=== PATIENT | female | born 1965 | race Caucasian/White ===

== ENCOUNTER 2017-10-02 15:42 | Outpatient (REF) | payer BC, SELFPAY ==
--- NOTE | 2017-10-02 15:00 | PAPFT_PTH ---
PATIENT: JENNIFER FRIEDMAN I LOC: [facility] U#:[id number] AGE/SX: 52/F ROOM: RE10/02/[address]: JOAQUIN Ornelas : 1965 BED: DIS: 10/02/2017 SPEC #: [id number] RECD: 10/02/17 17:40 STATUS: EDUARDO LEA #: [id number] JESIKA: 10/02/17 15:[address]: Josette Hughes DEPT: [facility] Cytology RECD BY: Anjana Benoit Tissues: 1 - CX/ENDOCX FOR PAP SMEARS Procedures: PAP THIN PREP/UVM Screening HPV DNA PROBE Comments: [id number]
== END 2017-10-02 15:43 ==
LOC: LBN 15:42
PROVIDERS: Visit Provider Nurse Practitioner Family
DX: Z12.4 Encounter for screening for malignant neoplasm of cervix (principal); Z11.51 Encounter for screening for human papillomavirus (HPV)
CPT/HCPCS: 88142; 87624

== ENCOUNTER 2018-02-20 07:52 | Day surgery (SDC) | payer BC, SELFPAY ==
[2018-02-20 08:31] VITALS: BP 122/81; PULSE 82; RESP 16; TEMP 36.9; O2SAT 96
[2018-02-20] MEDS: Povidone-Iodine Soln. 118 ML BTL TP (09:00)
[2018-02-20] MEDS: Lactated Ringers 1,000 ML 80 ML IV (09:05)
[2018-02-20] MEDS: Acetaminophen 325 MG TAB 650 MG PO (09:35)
[2018-02-20] MEDS: Bupivacaine 0.5% Pres-Free 30 ML VIAL (10:26)
[2018-02-20] MEDS: Lidocaine 1% Pres-Free 5 ML VIAL (10:26)
[2018-02-20] MEDS: Dexamethasone 4 MG/ML VIAL (11:06)
--- NOTE | 2018-02-20 11:33 | W.PM.DSUDISC ---
Discharge Plan Disposition Patient Disposition: HOME Condition: Good Discharge Details Reason For Visit: (L) HALLUX RIGIDUS Attending Provider: Zoran Prakash Primary Care Provider: None,None Home Meds and New Rx's Prescriptions: New ibuprofen 600 mg tablet 600 mg PO QID PRN (Reason: pain and inflamation) Qty: 60 RF: 0 hydrocodone-acetaminophen 5-300 mg tablet 1 tab PO Q6H PRN (Reason: pain, moderate) Qty: 7 RF: 0 Continued aspirin 325 MG tablet 325 mg PO PRN RF: 0 acetaminophen 500 MG tablet 500 mg PO PRN Qty: 2 RF: 0 valacyclovir 1,000 MG tablet 1,000 mg PO DAILY Qty: 90 RF: 2 ibuprofen 200 mg Tablet 400 mg PRNRF: 0 Discharge Instructions Activity:: Activity as Tolerated Remove Dressings/Wound Care:: Do Not Remove Shower/Bathe:: Cover Diet:: As Tolerated Discharge Orders Discharge Orders: Discharge Order (Routine); Ordered 02/20/18 Ordered By: Zoran Prakash DS: Diagnosis Discharge Diagnosis (1) Hallux limitus of left foot: Status: Acute
[2018-02-20 11:50] VITALS: BP 128/82; PULSE 72; RESP 16; TEMP 36.3; O2SAT 100
--- NOTE | 2018-02-20 12:51 | ROE_ITS ---
DATE OF PROCEDURE: February 20, 2018 PREOPERATIVE DIAGNOSIS: Hallux limitus deformity left foot with periarticular exostoses and advanced degenerative arthrosis. POSTOPERATIVE DIAGNOSIS: Same. PROCEDURE: Cheilectomy first MPJ left foot. SURGEON: Zoran Prakash D.P.M. ANESTHESIA: Monitored Anesthesia Care administered by Sony Penny CRNA; local blockade of the fi rst ray with 10 cc's 50/50 mixture 1% lidocaine plain, 0.5% Marcaine plain. OPERATIVE INDICATIONS: 52-year-old female with increasing pain in her left great toe joint secondary to advancing degenerative arthritis interfering with daily activities, shoe gear, work activities. Non-surgical treatments have failed to provide significant relief of symptoms. She understands risks and complications of surgery pertaining to pain, scarring, infection, stiffness of the joint. She u nderstands that over time progressive deterioration of the joint will likely occur, requiring revisio nal procedures. All questions have been answered. Informed consent has been obtained. No promises made to final outcome of surgery. REPORT OF OPERATION: The patient was brought to the operative suite, placed in the supine position, left foot prepped and draped in the usual sterile podiatric fashion. Anesthesia being achieved, the left foot was exsanguinated; a well-padded ankle tourniquet inflated 250 mmHg. Attention was directed to the left foot where a 5 cm dorsal medial incision was made parallel to the EHL tendon. The incision was deepened in controlled depth fashion; hemostasis acquired by electrocau celia. Dissection was carried down through the skin to the joint capsule. The joint capsule was inci sed midline and retracted. Extensive dorsal exostoses are appreciated. The joint itself showed sign ificant deterioration of the cartilage along the dorsal and dorsal lateral third of the metatarsal he ad and dorsal 20% of the base of the proximal phalanx. With power instrumentation the dorsal, medial and lateral hyperostoses were resected from both sides of the joint. A Derrick-type modification wa s then performed. All rough and bony edges were rasped smooth. Copious irrigation was performed. T he joint had a more normal appearance. The range of motion was improved. The joint capsule was repa ired with simple interrupted suture of #3-0 Vicryl; the subcutaneous layer was repaired with #4-0 Tom ryl; a running subcuticular stitch was used to coapt the skin of #4-0 Monocryl. Four milligrams of D examethasone Phosphate was infused into the joint. Xeroform, gauze fluff compression dressings appli ed. The tourniquet was released at 35 minutes, vascularity returning immediately to all toes. David brandt left the OR with vital signs stable, vascular status intact. Sharp and sponge counts were correc t. She will be followed by me in the office next week. cc: Sedrick Ramirez M.D.
== END 2018-02-20 14:40 | disposition home or self-care (01) ==
PROVIDERS: Visit Provider Podiatrist
PROC: (CPT 28289; principal; 2018-02-20 09:30)
DX: M20.5X2 Other deformities of toe(s) (acquired), left foot (principal); M19.072 Primary osteoarthritis, left ankle and foot; M79.672 Pain in left foot
CPT/HCPCS: 28289; J0690; J1100; J1885